=== PATIENT | female | born 2000 | race African-American/Black ===

== ENCOUNTER 2024-07-28 10:06 | Emergency (ER) | payer MEDICAID ==
[2024-07-28 11:16] LABS: Bilirubin Neg (Negative); Blood, Urine 25 (Negative); Clarity Slightly Cloudy (Clear); Glucose, Urine (Dipstick) Normal (Negative); Ketone, Urine 5 mg/dL (Negative); Leukocyte 25 (Negative); Nitrite Negative (Negative); Protein, Urine (Dipstick) 30 mg/dl (Neg-Trace); Specific Gravity, Urine 1.015 (1.005-1.030)
[2024-07-28 11:20] LABS: Pregnancy Test - Urine (BHCG) POSITIVE (Negative); Pregu Control Background? CLEAR/WHITE (CLR/WHITE); Pregu Control Bar Appear? YES (CONTROL BAR); Specific Gravity 1.015 (1.002-1.036)
[2024-07-28 11:54] LABS: CAUTI Indications for Culture Pelvic or flank pain; Squamous Epithelial Greater than 50 HPF (0-3)
[2024-07-28 11:55] LABS: Bacteria/HPF 1+ HPF (None Seen); Mucous/LPF 1+ LPF (<2+); Yeast-Budding Rare HPF (None Seen)
[2024-07-28 11:56] LABS: Urine Culture Reflex No No
== END 2024-07-28 12:51 | disposition home or self-care (01) ==
LOC: CSHERS 10:06
DX: O23.12 Infections of bladder in pregnancy, second trimester (principal); O98.812 Other maternal infectious and parasitic diseases complicating pregnancy, second trimester; Z3A.19 19 weeks gestation of pregnancy
CPT/HCPCS: 81001; 81025; 99283

== ENCOUNTER 2024-09-11 09:22 | Day surgery (SDC) | payer MEDICAID, OTHER ==
[2024-09-11 09:52] VITALS: BMI 39.3
[2024-09-11] MEDS ORDERED: hydrALAZINE 20 MG/ML VIAL SLOW IVP PRN (10:09)
[2024-09-11 11:46] LABS: Bilirubin Neg (Negative); Blood, Urine 50 (Negative); Clarity Clear (Clear); Glucose, Urine (Dipstick) Normal (Negative); Ketone, Urine Negative (Negative); Leukocyte 25 (Negative); Nitrite Negative (Negative); Protein, Urine (Dipstick) 30 mg/dl (Neg-Trace); Specific Gravity, Urine 1.025 (1.005-1.030)
[2024-09-11 12:00] LABS: Bacteria/HPF 3+ HPF (None Seen); CAUTI Indications for Culture Pelvic or flank pain; Calcium Oxalate Crystals Rare HPF (None Seen); Mucous/LPF 3+ LPF (<2+); RBC/HPF 0-3 HPF (0-3); Urine Culture Reflex No No; WBC/HPF 0-3 HPF (0-3)
[2024-09-11 12:00] LABS: #Basophils 0.01 10x3/uL (0.0-0.2); #Eosinophils 0.11 10x3/uL (0.0-0.5); #Monocytes 0.89 10x3/uL (0.0-1.1); #Neutrophils 5.94 10x3/uL (1.5-8.4); %Basophils 0.1 % (0.0-2.0); %Eosinophils 1.2 % (0.0-6.0); %Lymphocytes 26.4 % (18.0-47.0); %Monocytes 9.4 % (0.0-10.0); %Neutrophils 62.5 % (40.0-75.0); Hematocrit 33.8 % (34.9-44.5); Hemoglobin 10.6 g/dL (12.0-15.5); Mean Corpuscular HGB CONC 31.4 g/dL (32.0-36.0); Mean Corpuscular Hemoglobin 25.4 pg (27.0-33.0); Mean Corpuscular Volume 81.1 fL (81.6-98.3); Mean Platelet Volume 9.1 fL (7.4-10.4); Platelet Count 315 10x3/uL (150-450); RBC Distribution Width 13.6 % (11.5-14.5); Red Blood Cell (RBC) Count 4.17 10x6/uL (3.90-5.03); White Blood Cell (WBC) Count 9.5 10x3/uL (3.5-10.5)
[2024-09-11] MEDS: Acetaminophen 500 MG TAB PO SCH (13:51)
[2024-09-11] MEDS ORDERED: Loperamide HCl 2 MG CAP PO PRN (14:58)
[2024-09-12 21:27] LABS: Chlamydia by PCR, Vaginal Swab Not Detected (NotDetected); GC by PCR, Vaginal Swab Not Detected (NotDetected)
== END 2024-09-11 13:55 | disposition home or self-care (01) ==
LOC: CSHLD/OP 09:22
PROVIDERS: ATTEND Obstetrics & Gynecology
DX: O99.891 Other specified diseases and conditions complicating pregnancy (principal); R10.30 Lower abdominal pain, unspecified; Z3A.25 25 weeks gestation of pregnancy
CPT/HCPCS: 36415; 76815; 81001; 85025; 87480; 87491; 87510; 87591; 87660

== ENCOUNTER 2024-12-04 05:24 | Day surgery (SDC) | payer OTHER ==
[2024-12-04 05:55] VITALS: BMI 40.1
[2024-12-04 06:25] LABS: #Basophils Less than 0.03 10x3/uL (0.0-0.2); #Eosinophils 0.09 10x3/uL (0.0-0.5); #Monocytes 0.75 10x3/uL (0.0-1.1); #Neutrophils 3.41 10x3/uL (1.5-8.4); %Basophils 0.1 % (0.0-2.0); %Eosinophils 1.3 % (0.0-6.0); %Lymphocytes 39.7 % (18.0-47.0); %Monocytes 10.6 % (0.0-10.0); %Neutrophils 48.2 % (40.0-75.0); Hematocrit 32.4 % (34.9-44.5); Hemoglobin 10.4 g/dL (12.0-15.5); Mean Corpuscular HGB CONC 32.1 g/dL (32.0-36.0); Mean Corpuscular Hemoglobin 25.4 pg (27.0-33.0); Mean Platelet Volume 9.5 fL (7.4-10.4); Platelet Count 299 10x3/uL (150-450); RBC Distribution Width 14.7 % (11.5-14.5); White Blood Cell (WBC) Count 7.08 10x3/uL (3.5-10.5)
[2024-12-04 06:38] LABS: Creatinine, Urine 338.28 mg/dL (16.00-327.00)
[2024-12-04 06:41] LABS: ALT (SGPT) 39 U/L (Less than 34); AST (SGOT) 47 U/L (11-34); Albumin 2.9 g/dL (3.1-4.5); Alkaline Phosphatase 169 U/L (40-110); Anion Gap 16 mmol/L (10-20); BUN (Urea Nitrogen) 9 mg/dL (7.0-18.7); Bilirubin, Total 0.3 mg/dL (0.3-1.2); Calc. Creatinine Clearance 291 mL/min (70-130); Calcium 9.4 mg/dL (7.8-10.44); Carbon Dioxide 15 mmol/L (22-29); Chloride 110 mmol/L (98-107); Estimated GFR 128; Globulin 3.9 g/dL (2.4-3.5); Glucose 82 mg/dL (70-105); Potassium 3.6 mmol/L (3.5-5.1); Protein, Total 6.8 g/dL (6.0-8.3); Sodium 137 mmol/L (136-145)
== END 2024-12-04 06:56 | disposition home health service (06) ==
LOC: CSHLD/OP 05:24
PROVIDERS: ATTEND Obstetrics & Gynecology
DX: O99.891 Other specified diseases and conditions complicating pregnancy (principal); R20.0 Anesthesia of skin; R22.41 Localized swelling, mass and lump, right lower limb; O09.33 Supervision of pregnancy with insufficient antenatal care, third trimester; O99.213 Obesity complicating pregnancy, third trimester; E66.812 Obesity, class 2; O24.419 Gestational diabetes mellitus in pregnancy, unspecified control; O99.013 Anemia complicating pregnancy, third trimester; D50.9 Iron deficiency anemia, unspecified; O26.843 Uterine size-date discrepancy, third trimester; O99.283 Endocrine, nutritional and metabolic diseases complicating pregnancy, third trimester; R74.01 Elevation of levels of liver transaminase levels; Z79.899 Other long term (current) drug therapy; Z3A.37 37 weeks gestation of pregnancy
CPT/HCPCS: 36415; 80053; 82570; 84156; 85025

== ENCOUNTER 2024-12-14 18:00 | Inpatient (IN) | payer OTHER ==
[2024-12-14] MEDS ORDERED: Tranexamic Acid 1,000 MG/10 ML VIAL IVP PRN (18:33)
[2024-12-14] MEDS ORDERED: hydrALAZINE 20 MG/ML VIAL SLOW IVP PRN (18:33)
[2024-12-14] MEDS ORDERED: Lidocaine 1% (PF) 30 ML VIAL SC PRN (18:33)
[2024-12-14] MEDS ORDERED: fentaNYL 50 mcg/mL 1 mL Vial SLOW IVP PRN (18:33)
[2024-12-14] MEDS ORDERED: Acetaminophen 500 MG TAB PO PRN (18:33)
[2024-12-14] MEDS ORDERED: Methylergonovine 0.2 MG/ML VIAL IM PRN (18:33)
[2024-12-14] MEDS ORDERED: Promethazine HCl 25 MG/ML VIAL IM PRN (18:33)
[2024-12-14] MEDS ORDERED: Ondansetron PF 4 MG/2 ML Vial IVP PRN (18:33)
[2024-12-14] MEDS ORDERED: Misoprostol 200 MCG TAB PR PRN (18:33)
[2024-12-14] MEDS ORDERED: Docusate 100 MG CAP PO PRN (18:33)
[2024-12-14] MEDS ORDERED: Carboprost 250 MCG/ML AMP IM PRN (18:33)
[2024-12-14] MEDS ORDERED: Oxytocin 30 units/NS 500 ML 500 ML IV SCH (18:45)
[2024-12-14 19:26] VITALS: BMI 41.3
[2024-12-14 20:25] LABS: Hematocrit 33.4 % (34.9-44.5); Hemoglobin 10.4 g/dL (12.0-15.5); Mean Corpuscular HGB CONC 31.1 g/dL (32.0-36.0); Mean Corpuscular Hemoglobin 25.1 pg (27.0-33.0); Mean Corpuscular Volume 80.5 fL (81.6-98.3); Mean Platelet Volume 9.8 fL (7.4-10.4); Platelet Count 302 10x3/uL (150-450); RBC Distribution Width 15.2 % (11.5-14.5); Red Blood Cell (RBC) Count 4.15 10x6/uL (3.90-5.03); White Blood Cell (WBC) Count 6.08 10x3/uL (3.5-10.5)
[2024-12-14 20:39] LABS: Glucose 78 mg/dL (70-105)
[2024-12-14 21:04] LABS: Syphilis Antibody Nonreactive (Nonreactive); Syphilis Antibody Index 0.08 S/CO (<1.00 Non-Reactive)
[2024-12-14] MEDS: Oxytocin 30 units/NS 500 ML 500 ML IV SCH (21:04)
[2024-12-14] MEDS: Lactated Ringer's 1,000 ML IV SCH (21:04)
[2024-12-14 21:05] LABS: HBsAg Index 0.15 S/CO (0-0.99); Hep B Surf Ag - L&D Non-Reactive S/CO (NonReactive)
[2024-12-14] MEDS: fentaNYL/Ropivacaine Epidural 100 ML ONE (23:41)
[2024-12-15] MEDS ORDERED: diphenhydrAMINE 50 MG/ML VIAL IVP PRN (00:05)
[2024-12-15] MEDS ORDERED: Ondansetron PF 4 MG/2 ML Vial IVP PRN ×2 (00:05→07:28)
[2024-12-15] MEDS ORDERED: Naloxone HCl 0.4 mg/ml Vial IVP PRN ×2 (00:05)
[2024-12-15] MEDS ORDERED: ePHEDrine Sulfate 50 MG/10 ML VIAL SLOW IVP PRN (00:05)
[2024-12-15] MEDS ORDERED: Acetaminophen 325 MG TAB PO PRN (00:05)
[2024-12-15] MEDS ORDERED: Promethazine HCl 25 MG/ML VIAL IM PRN (00:05)
[2024-12-15] MEDS ORDERED: Moisturizing Cream (Eucerin) 113 GM JAR TOP PRN (00:05)
[2024-12-15] MEDS ORDERED: Lactated Ringer's 500 ML IV PRN (00:05)
[2024-12-15] MEDS ORDERED: fentaNYL 2 mcg/Ropivacaine 0.2% Epidural 100 ML CADD EPIDURAL SCH (00:15)
[2024-12-15] MEDS ORDERED: Communication Order-Pharmacy FS SCH (00:15)
[2024-12-15] MEDS: valACYclovir 500 MG TAB PO SCH (00:44)
[2024-12-15] MEDS ORDERED: Calcium Gluc 4.6 MEQ/10 ML (100 MG/ML) SLOW IVP PRN (05:39)
[2024-12-15] MEDS ORDERED: hydrALAZINE 20 MG/ML VIAL SLOW IVP PRN ×2 (05:45→07:28)
[2024-12-15 05:52] LABS: #Basophils Less than 0.03 10x3/uL (0.0-0.2); #Eosinophils 0.06 10x3/uL (0.0-0.5); #Monocytes 0.68 10x3/uL (0.0-1.1); #Neutrophils 3.56 10x3/uL (1.5-8.4); %Basophils 0.3 % (0.0-2.0); %Eosinophils 0.9 % (0.0-6.0); %Lymphocytes 38.1 % (18.0-47.0); %Monocytes 9.7 % (0.0-10.0); %Neutrophils 50.9 % (40.0-75.0); Hematocrit 33.6 % (34.9-44.5); Hemoglobin 10.8 g/dL (12.0-15.5); Mean Corpuscular HGB CONC 32.1 g/dL (32.0-36.0); Mean Corpuscular Hemoglobin 26.2 pg (27.0-33.0); Mean Corpuscular Volume 81.4 fL (81.6-98.3); Mean Platelet Volume 9.5 fL (7.4-10.4); Platelet Count 288 10x3/uL (150-450); RBC Distribution Width 15.4 % (11.5-14.5); Red Blood Cell (RBC) Count 4.13 10x6/uL (3.90-5.03); White Blood Cell (WBC) Count 6.99 10x3/uL (3.5-10.5)
[2024-12-15 06:11] LABS: ALT (SGPT) 22 U/L (Less than 34); AST (SGOT) 32 U/L (11-34); Albumin 2.9 g/dL (3.1-4.5); Alkaline Phosphatase 174 U/L (40-110); Anion Gap 14 mmol/L (10-20); BUN (Urea Nitrogen) 6 mg/dL (7.0-18.7); Bilirubin, Total 0.5 mg/dL (0.3-1.2); Calc. Creatinine Clearance 331 mL/min (70-130); Calcium 9.5 mg/dL (7.8-10.44); Carbon Dioxide 19 mmol/L (22-29); Chloride 107 mmol/L (98-107); Estimated GFR 131; Globulin 3.8 g/dL (2.4-3.5); Glucose 76 mg/dL (70-105); Potassium 3.6 mmol/L (3.5-5.1); Protein, Total 6.7 g/dL (6.0-8.3); Sodium 136 mmol/L (136-145)
[2024-12-15] MEDS ORDERED: Misoprostol 200 MCG TAB VAG PRN (07:28)
[2024-12-15] MEDS ORDERED: Milk Of Magnesia 30 ML UDCUP PO PRN (07:28)
[2024-12-15] MEDS ORDERED: Methylergonovine 0.2 MG TAB PO PRN (07:28)
[2024-12-15] MEDS ORDERED: Bisacodyl 10 MG SUPP PR PRN (07:28)
[2024-12-15] MEDS ORDERED: Methylergonovine 0.2 MG/ML VIAL IM PRN (07:28)
[2024-12-15] MEDS ORDERED: Oxytocin 30 units/NS 500 ML 500 ML IV SCH (07:30)
[2024-12-15] MEDS ORDERED: FERROUS FUMARATE 324 MG PO SCH (09:00)
[2024-12-15] MEDS ORDERED: valACYclovir 500 MG TAB PO SCH (09:00)
[2024-12-15] MEDS ORDERED: Prenatal Vitamin 1 TAB PO SCH (09:00)
[2024-12-15] MEDS ORDERED: Benzocaine-Menthol 82.5 ML CAN TOP PRN (09:30)
[2024-12-15 10:54] LABS: Chlamydia by PCR, Vaginal Swab Not Detected (NotDetected); GC by PCR, Vaginal Swab Not Detected (NotDetected)
[2024-12-15] MEDS: Docusate 100 MG CAP PO SCH (12:03)
[2024-12-15] MEDS: Ferrous Sulfate 325 MG TAB PO SCH (12:03)
[2024-12-15] MEDS: Prenatal Vitamin 1 TAB PO SCH (12:04)
[2024-12-15] MEDS: Ibuprofen 800 MG TAB PO SCH (12:08)
[2024-12-15] MEDS ORDERED: metFORMIN 500 MG TAB PO SCH (21:00)
[2024-12-16] MEDS ORDERED: Polyethylene Glycol 3350 17 GM Packet PO SCH (09:00)
[2024-12-16] MEDS: Polyethylene Glycol 3350 17 GM Packet PO SCH (09:00)
[2024-12-16] MEDS: Boostrix 0.5 ML (Tdap) VIAL (>/=7 yrs of age) IM ONE (19:08)
[2024-12-16 20:18] VITALS: TEMP 98.3
[2024-12-17 08:20] VITALS: BP 122/66
== END 2024-12-17 13:00 | disposition home or self-care (01) | DRG 768 ==
LOC: CSHLD 18:17 → CSHPP 12-15 10:30
PROVIDERS: ADMIT Family Medicine; ATTEND Family Medicine
PROC: 10E0XZZ Delivery of Products of Conception, External Approach (ICD-10-PCS; principal; 2024-12-14)
PROC: 0DQR0ZZ Repair Anal Sphincter, Open Approach (ICD-10-PCS; 2024-12-14)
PROC: 3E033VJ Introduction of Other Hormone into Peripheral Vein, Percutaneous Approach (ICD-10-PCS; 2024-12-14)
DX: O24.429 Gestational diabetes mellitus in childbirth, unspecified control (principal); Z37.0 Single live birth; O70.20 Third degree perineal laceration during delivery, unspecified; O76 Abnormality in fetal heart rate and rhythm complicating labor and delivery; O99.02 Anemia complicating childbirth; E66.812 Obesity, class 2; D50.9 Iron deficiency anemia, unspecified; Z3A.39 39 weeks gestation of pregnancy; Z86.19 Personal history of other infectious and parasitic diseases
CPT/HCPCS: 36415; 51702; 80053; 82570; 82947; 84156; 85025; 85027; 86780; 86850; 86900; 86901; 87340; 87480; 87491; 87510; 87591; 87660; J2590; J7120